=== PATIENT | female | born 1945 | race Caucasian/White ===

== ENCOUNTER → 2017-08-25 | Outpatient (CLI) | payer OTHER ==
[~2017-08-25] MED LIST: ESTR2 PO; LORA1 PO; LOSA25 PO; OXYACE5T PO
== END ==
LOC: LAB 17:00
DX: N90.89 Other specified noninflammatory disorders of vulva and perineum (principal)
CPT/HCPCS: 87070; 87075; 87077; 87147; 87185; 87186; 87205

== ENCOUNTER → 2018-04-06 | Outpatient (CLI) | payer OTHER ==
[2018-04-06 19:25] LABS: BASOPHILS ABSOLUTE AUTO 0.06 K/mm3 (0.00-0.23); BASOPHILS PERCENT AUTO 1 % (0-2); EOSINOPHILS ABSOLUTE AUTO 0.39 K/mm3 (0.00-0.68); EOSINOPHILS PERCENT AUTO 4 % (0-6); Hematocrit 42.9 % (33.0-51.0); Hemoglobin 14.1 g/dL (11.5-16.0); IMMATURE GRAN ABSOLUTE AUTO 0.04 K/mm3 (0.00-0.10); IMMATURE GRAN PERCENT AUTO 0 % (0-1); LYMPHOCYTES ABSOLUTE AUTO 1.75 K/mm3 (0.84-5.20); LYMPHOCYTES PERCENT AUTO 16 % (21-46); MONOCYTES ABSOLUTE AUTO 0.54 K/mm3 (0.16-1.47); MONOCYTES PERCENT AUTO 5 % (4-13); Mean Corpuscular HGB 29.4 pg (26.0-34.0); Mean Corpuscular HGB Conc 32.9 g/dL (31.5-36.5); Mean Corpuscular Volume 90 fL (80-100); Mean Platelet Volume 11.1 fL (9.1-12.4); NEUTROPHILS ABSOLUTE AUTO 8.43 K/mm3 (1.96-9.15); NEUTROPHILS PERCENT AUTO 75 % (41-73); Platelet Count 290 K/mm3 (150-400); RDW Coefficient Variation 13.5 % (11.7-14.2); RDW Standard Deviation 44.2 fL (35.1-46.3); Red Blood Cell Count 4.79 M/mm3 (3.80-5.20); White Blood Cell Count 11.21 K/mm3 (4.00-11.30)
[2018-04-06 19:37] LABS: C-REACTIVE PROTEIN, EXT RANGE 1.02 mg/dL (0.000-0.300)
[2018-04-06 19:44] LABS: Albumin, Blood 4.3 g/dL (3.4-5.0); Albumin/Globulin Ratio 1.1 (0.8-1.8); Bilirubin, Total 0.4 mg/dL (0.1-1.0); Bun/Creatinine Ratio 27.2 (12.0-20.0); Calcium, Blood 9.1 mg/dL (8.5-10.1); Creatinine, Blood 1.14 mg/dL (0.40-1.00); Potassium, Blood 4.3 mmol/L (3.5-5.5); Total Protein, Blood 8.3 g/dL (6.4-8.2)
== END ==
LOC: LAB 18:35 → LAB SHORT 18:35
PROVIDERS: Family Medicine
DX: M54.6 Pain in thoracic spine (principal); R53.83 Other fatigue
CPT/HCPCS: 80053; 85025; 86140

== ENCOUNTER → 2020-12-09 | Outpatient (CLI) | payer MEDICARE | END | disposition home or self-care (01) | LOC: LAB 10:46 → LAB SHORT 10:46 | DX: N90.89 Other specified noninflammatory disorders of vulva and perineum (principal) | CPT/HCPCS: 87070; 87075; 87077; 87147; 87186; 87205 ==

== ENCOUNTER → 2024-01-12 | Outpatient (CLI) | payer OTHER ==
[2024-01-12 12:13] LABS: Appearance, Urine Hazy (Clear); Bilirubin, Urine Neg (Neg); Blood, Urine 2+ (Neg); Color, Urine Yellow (P-Yellow); Glucose Qualitative, Urine Neg (Neg); Ketones, Urine Neg (Neg); Leukocyte Esterase, Urine 3+ (Neg); Nitrite, Urine Neg (Neg); Protein, Urine Neg (Neg); Urobilinogen, Urine NORM (Normal)
[2024-01-12 12:44] LABS: Bacteria Few /hpf; Squamous Epithelial Cells Rare /hpf (Few); White Blood Cells, Urine 25-50 /hpf (0-5)
[2024-01-12 12:45] LABS: Transitional Epithelial Cells Few /hpf (0-Rare)
== END ==
LOC: LAB SHORT 12:00 → LAB 12:00
PROVIDERS: Surgery
DX: Z51.0 Encounter for antineoplastic radiation therapy (principal); C51.8 Malignant neoplasm of overlapping sites of vulva
CPT/HCPCS: 81001; 87086

== ENCOUNTER 2025-04-23 11:01 | Day surgery (SDC) | payer OTHER ==
[~2025-04-23] VITALS: Ht 167.6 cm; Wt 78.7 kg
[~2025-04-23 11:01] MED LIST changes: +Balanced Salt Epinephrine Irrigation Solution 500 mL IR SCH; +Moxifloxacin HCL 0.5 MG/0.1 ML 0.4MLSYR LEFTEYE SCH; +Ondansetron 4 MG SoluTab MM PRN; +PHENYLEPHRINE\\TROPICAMIDE\\TETRACAINE OPHTHALMIC DILATING SOLN LEFTEYE PRN; +Povidone-Iodine 450 DROP/30 ML Solution LEFTEYE SCH; +Povidone-Iodine 450 DROP/30 ML Solution ONE; +Tetracaine HCl/Pf 0.5% Opth Soln 4 ml ONE; +diazePAM 5 MG,diazePAM 2 MG PO SCH
--- NOTE | 2025-04-23 11:23 | NUR ---
04/23/25 1123 Patti Jamison PT STATES ANXIETY LEVEL IS 0/10 IN PREOP CALL LIGHT IN HAND PT IS ON CONTINUOUS PULSE OX MONITORING
[2025-04-23] MEDS ORDERED: AREDS (11:25)
[2025-04-23] MEDS ORDERED: HAIR, SKIN AND1 EAC3 (11:25)
[2025-04-23] MEDS ORDERED: Tetracaine HCl 0.5% Opth Soln 15 ml LEFTEYE ONE (11:43)
--- NOTE | 2025-04-23 11:49 | NUR ---
04/23/25 1149 Pablo Hirsch BP 155/60, HR 61, O2 98%.
--- NOTE | 2025-04-23 12:00 | NUR ---
04/23/[address] AT BEDSIDE
[2025-04-23 12:02] VITALS: BP 155/62
== END 2025-04-23 12:21 | disposition home or self-care (01) ==
LOC: ORSCSDS 11:01
PROVIDERS: Student in an Organized Health Care Education/Training Program
PROC: 08RK3JZ Replacement of Left Lens with Synthetic Substitute, Percutaneous Approach (ICD-10-PCS; principal; 2025-04-23 12:30)
DX: H25.813 Combined forms of age-related cataract, bilateral (principal); I10 Essential (primary) hypertension; Z79.899 Other long term (current) drug therapy
CPT/HCPCS: A9270; V2632

== ENCOUNTER 2025-05-07 09:23 | Day surgery (SDC) | payer OTHER ==
[~2025-05-07] VITALS: Ht 167.6 cm; Wt 77.2 kg
[~2025-05-07 09:23] MED LIST changes: +AREDS; +HAIR, SKIN AND1 EAC3; -Moxifloxacin HCL 0.5 MG/0.1 ML 0.4MLSYR LEFTEYE SCH; +Moxifloxacin HCL 0.5 MG/0.1 ML 0.4MLSYR RIGHTEYE SCH; -PHENYLEPHRINE\\TROPICAMIDE\\TETRACAINE OPHTHALMIC DILATING SOLN LEFTEYE PRN; +PHENYLEPHRINE\\TROPICAMIDE\\TETRACAINE OPHTHALMIC DILATING SOLN RIGHTEYE PRN; -Povidone-Iodine 450 DROP/30 ML Solution LEFTEYE SCH; +Povidone-Iodine 450 DROP/30 ML Solution RIGHTEYE SCH; -diazePAM 5 MG,diazePAM 2 MG PO SCH
[2025-05-07] MEDS ORDERED: [UNRECOGNIZED DRUG - OTHER] PO (10:03)
[2025-05-07] MEDS ORDERED: Tetracaine HCl 0.5% Opth Soln 15 ml RIGHTEYE ONE (10:35)
--- NOTE | 2025-05-07 10:39 | NUR ---
05/07/25 1039 Pablo Hirsch N 150/67 96% 10L BLOW BY O2 63 18
[2025-05-07 10:55] VITALS: BP 151/51
== END 2025-05-07 11:07 | disposition home or self-care (01) ==
LOC: ORSCSDS 09:23
PROVIDERS: Student in an Organized Health Care Education/Training Program
PROC: 08RJ3JZ Replacement of Right Lens with Synthetic Substitute, Percutaneous Approach (ICD-10-PCS; principal; 2025-05-07 11:00)
DX: H25.811 Combined forms of age-related cataract, right eye (principal); Z96.1 Presence of intraocular lens; I10 Essential (primary) hypertension; Z79.899 Other long term (current) drug therapy
CPT/HCPCS: A9270; V2632